=== PATIENT | male | born 2000 | race Caucasian/White ===

== ENCOUNTER 2023-01-28 17:11 | Inpatient (IN) | payer OTHER ==
[2023-01-28 18:22] LABS: HEMATOCRIT 39.8 % (42.0-52.0); MEAN CORPUSCULAR HEMOGLOBIN 32.6 pg (27.0-33.0); MEAN CORPUSCULAR HGB CONC 35.2 g/dl (32.0-36.5); MEAN CORPUSCULAR VOLUME 92.8 fl (80.0-96.0); PLATELET COUNT, AUTOMATED 265 10^3/uL (150-450); RED BLOOD COUNT 4.29 10^6/uL (4.30-6.10); WHITE BLOOD COUNT 11.9 10^3/uL (4.0-10.0)
[2023-01-28 18:39] LABS: AMPHETAMINES LEVEL URINE NEGATIVE (NEGATIVE); BARBITURATES URINE NEGATIVE (NEGATIVE); BENZODIAZEPINES URINE NEGATIVE (NEGATIVE); CANNABINOIDS URINE NEGATIVE (NEGATIVE); COCAINE METABOLITE URINE NEGATIVE (NEGATIVE); METHADONE URINE NEGATIVE (NEGATIVE); OPIATES URINE NEGATIVE (NEGATIVE); PHENCYCLIDINE URINE NEGATIVE (NEGATIVE)
[2023-01-28 18:41] LABS: ETHYL ALCOHOL (ETHANOL) < 0.003 % (0.000-0.010)
[2023-01-28 18:43] LABS: ACETAMINOPHEN LEVEL 2.4 UG/ML (10.0-20.0); ALBUMIN 4.3 G/DL (3.2-5.2); ALKALINE PHOSPHATASE 85 U/L (46-116); ALT/SGPT 25 U/L (7.0-40); AST/SGOT 24 U/L (<34); BILIRUBIN,DIRECT 0.1 MG/DL (<0.4); BILIRUBIN,TOTAL 0.4 MG/DL (0.3-1.2); BLOOD UREA NITROGEN 17 MG/DL (9-23); CALCIUM LEVEL 9.4 MG/DL (8.5-10.1); CARBON DIOXIDE LEVEL 24 MMOL/L (20-31); CHLORIDE LEVEL 107 MMOL/L (98-107); CREATININE FOR GFR 0.91 MG/DL (0.70-1.30); GLOMERULAR FILTRATION RATE > 60.0 (>60); GLUCOSE, FASTING 93 MG/DL (60-100); POTASSIUM SERUM 3.4 MMOL/L (3.5-5.1); SALICYLATE LEVEL < 3.0 MG/DL (<30); SODIUM LEVEL 142 MMOL/L (136-145); TOTAL PROTEIN 7.1 G/DL (5.7-8.2)
[2023-01-28 18:45] LABS: THYROID STIMULATING HORMONE 3.227 uIU/ML (0.55-4.78)
[2023-01-28] MEDS ORDERED: IBUP200C29 PO (19:51)
[2023-01-28] MEDS ORDERED: CLAR10CA3 PO (19:51)
[2023-01-28] MEDS ORDERED: OXYM15SP2 NARES (19:51)
[2023-01-28] MEDS ORDERED: MUCI600T31 PO (19:52)
[2023-01-28] MEDS ORDERED: HOME MED LIST COMPLETE! XX SCH (19:55)
[2023-01-28] MEDS ORDERED: OLANZapine ORAL DISINTEGRATING TAB 5MG PO PRN (22:15)
[2023-01-28] MEDS ORDERED: OXYMETAZOLINE 0.05% NASAL SPRAY (AFRIN) PRN (22:15)
[2023-01-28] MEDS ORDERED: MOM 30ML SUSPENSION UDC PO PRN (22:15)
[2023-01-28] MEDS ORDERED: LORATADINE 10 MG TAB PO PRN (22:15)
[2023-01-28] MEDS ORDERED: ACETAMINOPHEN TAB 650MG DOSE (2X325MG) PO PRN (22:15)
[2023-01-28] MEDS ORDERED: NICOTINE 21MG/24HR 1 EA TRANSDERMAL TD PRN (22:15)
[2023-01-28] MEDS ORDERED: MAALOX 30 ML SUSP *UDC PO PRN (22:15)
[2023-01-28] MEDS ORDERED: guaiFENesin ER 600 MG TAB PO PRN (22:15)
[2023-01-29] MEDS: traZODone 50 MG TAB PO PRN (01:03)
[2023-01-29 01:58] VITALS: BP 130/85; TEMP 98.6; O2SAT 98
[2023-01-29 06:50] VITALS: BP 115/78; TEMP 97.3; O2SAT 100
[2023-01-29] MEDS ORDERED: POTASSIUM CHLORIDE 10MEQ SR TABLET PO ONE (08:05)
[2023-01-29 09:26] LABS: HEMATOCRIT 42.1 % (42.0-52.0); HEMOGLOBIN 14.6 g/dl (13.5-17.5); MEAN CORPUSCULAR HEMOGLOBIN 32.4 pg (27.0-33.0); MEAN CORPUSCULAR HGB CONC 34.7 g/dl (32.0-36.5); MEAN CORPUSCULAR VOLUME 93.3 fl (80.0-96.0); PLATELET COUNT, AUTOMATED 227 10^3/uL (150-450); RED BLOOD COUNT 4.51 10^6/uL (4.30-6.10); WHITE BLOOD COUNT 8.4 10^3/uL (4.0-10.0)
[2023-01-29] MEDS ORDERED: ESCITALOPRAM OXALATE 5MG TABLET (LEXAPRO) PO ONE (11:20)
[2023-01-29] MEDS: NICOTINE POLACRILEX 2 MG GUM PO PRN ×2 (12:50→23:04)
[2023-01-29 16:17] VITALS: BP 123/71; TEMP 98.8; O2SAT 100
[2023-01-30 06:28] VITALS: BP 119/71; TEMP 98.1; O2SAT 98
[2023-01-30] MEDS: ESCITALOPRAM OXALATE 5MG TABLET (LEXAPRO) PO SCH (08:45)
[2023-01-30] MEDS: NICOTINE POLACRILEX 2 MG GUM PO PRN ×2 (08:45→20:45)
[2023-01-30] MEDS: OLANZapine 5 MG TAB PO SCH ×2 (09:47→20:43)
[2023-01-30 15:57] VITALS: BP 128/67; TEMP 97.5; O2SAT 100
[2023-01-30] MEDS: traZODone 50 MG TAB PO PRN (20:43)
[2023-01-31 05:32] VITALS: BP 117/69; TEMP 98; O2SAT 99
[2023-01-31] MEDS: ESCITALOPRAM OXALATE 5MG TABLET (LEXAPRO) PO SCH (09:52)
[2023-01-31] MEDS: OLANZapine 5 MG TAB PO SCH ×2 (09:52→21:43)
[2023-01-31 18:35] VITALS: BP 124/59; TEMP 97.7; O2SAT 96
[2023-01-31] MEDS: traZODone 50 MG TAB PO PRN (21:43)
[2023-01-31] MEDS: NICOTINE POLACRILEX 2 MG GUM PO PRN (21:43)
[2023-02-01 06:12] VITALS: BP 117/66; TEMP 98; O2SAT 99
[2023-02-01] MEDS: ESCITALOPRAM OXALATE 5MG TABLET (LEXAPRO) PO SCH (09:19)
[2023-02-01] MEDS: OLANZapine 5 MG TAB PO SCH ×2 (09:19→21:20)
[2023-02-01] MEDS: NICOTINE POLACRILEX 2 MG GUM PO PRN ×2 (16:40→21:21)
[2023-02-01 16:59] VITALS: BP 136/62; TEMP 98.6; O2SAT 92
[2023-02-01] MEDS: traZODone 50 MG TAB PO PRN (21:20)
[2023-02-02 06:29] VITALS: BP 136/59; TEMP 96.7; O2SAT 98
[2023-02-02] MEDS: ESCITALOPRAM OXALATE 10 MG TAB (LEXAPRO) PO SCH (09:11)
[2023-02-02] MEDS: OLANZapine 5 MG TAB PO SCH ×2 (09:11→21:23)
[2023-02-02] MEDS: NICOTINE POLACRILEX 2 MG GUM PO PRN ×2 (09:12→21:24)
[2023-02-02 16:18] VITALS: BP 115/62; TEMP 98.2; O2SAT 97
[2023-02-02] MEDS: traZODone 50 MG TAB PO PRN (21:23)
[2023-02-03 06:42] VITALS: BP 103/54; TEMP 97.4; O2SAT 98
[2023-02-03] MEDS: OLANZapine 5 MG TAB PO SCH ×2 (08:42→21:21)
[2023-02-03] MEDS: ESCITALOPRAM OXALATE 10 MG TAB (LEXAPRO) PO SCH (08:42)
[2023-02-03] MEDS: NICOTINE POLACRILEX 2 MG GUM PO PRN ×2 (13:57→21:23)
[2023-02-03 16:22] VITALS: BP 130/60; TEMP 98.7; O2SAT 98
[2023-02-03] MEDS: traZODone 50 MG TAB PO PRN (21:21)
[2023-02-03] MEDS: diphenhydrAMINE 25MG CAP PO PRN (22:39)
[2023-02-04 06:31] VITALS: BP 133/72; TEMP 97.9; O2SAT 97
[2023-02-04] MEDS: ESCITALOPRAM OXALATE 10 MG TAB (LEXAPRO) PO SCH (09:26)
[2023-02-04] MEDS: OLANZapine 5 MG TAB PO SCH ×2 (09:26→20:24)
[2023-02-04] MEDS: NICOTINE POLACRILEX 2 MG GUM PO PRN ×2 (09:27→18:50)
[2023-02-04 18:00] VITALS: BP 136/70; TEMP 97; O2SAT 100
[2023-02-04] MEDS: diphenhydrAMINE 25MG CAP PO PRN (18:52)
[2023-02-04] MEDS: traZODone 50 MG TAB PO PRN (20:25)
[2023-02-05 06:25] VITALS: BP 111/60; TEMP 98.7; O2SAT 97
[2023-02-05] MEDS ORDERED: LEXA1TAB PO (07:59)
[2023-02-05] MEDS: OLANZapine 5 MG TAB PO SCH (08:32)
[2023-02-05] MEDS: ESCITALOPRAM OXALATE 10 MG TAB (LEXAPRO) PO SCH (08:32)
== END 2023-02-05 10:12 | disposition home or self-care (01) | DRG 885 ==
LOC: M ED 17:11 → M ED INP 22:13 → M PSY 01-29 00:14
PROVIDERS: ADMIT Student in an Organized Health Care Education/Training Program; ATTEND Student in an Organized Health Care Education/Training Program
DX: F39 Unspecified mood [affective] disorder (principal); R45.851 Suicidal ideations; F20.9 Schizophrenia, unspecified; F43.10 Post-traumatic stress disorder, unspecified; F41.9 Anxiety disorder, unspecified; F70 Mild intellectual disabilities; F17.210 Nicotine dependence, cigarettes, uncomplicated; D72.829 Elevated white blood cell count, unspecified; E87.6 Hypokalemia; Z79.899 Other long term (current) drug therapy

== ENCOUNTER 2023-04-21 13:27 | Emergency (ER) | payer OTHER ==
[~2023-04-21] VITALS: Ht 193 cm; Wt 80.5 kg
[~2023-04-21 13:27] MED LIST: CLAR10CA3 PO; IBUP200C29 PO; LEXA1TAB PO; MUCI600T31 PO; OXYM15SP2 NARES
[2023-04-21 16:09] LABS: HEMATOCRIT 41.9 % (42.0-52.0); HEMOGLOBIN 15.3 g/dl (13.5-17.5); MEAN CORPUSCULAR HEMOGLOBIN 32.1 pg (27.0-33.0); MEAN CORPUSCULAR HGB CONC 36.5 g/dl (32.0-36.5); MEAN CORPUSCULAR VOLUME 87.8 fl (80.0-96.0); PLATELET COUNT, AUTOMATED 341 10^3/uL (150-450); RED BLOOD COUNT 4.77 10^6/uL (4.30-6.10); WHITE BLOOD COUNT 11.1 10^3/uL (4.0-10.0)
[2023-04-21] MEDS ORDERED: hydrOXYzine 50 MG TAB PO STA (16:17)
[2023-04-21 16:21] LABS: BARBITURATES URINE NEGATIVE (NEGATIVE)
[2023-04-21 16:22] LABS: AMPHETAMINES LEVEL URINE NEGATIVE (NEGATIVE); BENZODIAZEPINES URINE NEGATIVE (NEGATIVE); COCAINE METABOLITE URINE NEGATIVE (NEGATIVE); METHADONE URINE NEGATIVE (NEGATIVE); OPIATES URINE NEGATIVE (NEGATIVE); PHENCYCLIDINE URINE NEGATIVE (NEGATIVE)
[2023-04-21 16:23] LABS: ETHYL ALCOHOL (ETHANOL) < 0.003 % (0.000-0.010)
[2023-04-21 16:24] LABS: SALICYLATE LEVEL < 3.0 MG/DL (<30)
[2023-04-21 16:25] LABS: ACETAMINOPHEN LEVEL < 2.0 UG/ML (10.0-20.0); ALBUMIN 4.9 G/DL (3.2-5.2); ALKALINE PHOSPHATASE 68 U/L (46-116); ALT/SGPT 25 U/L (7.0-40); AST/SGOT 31 U/L (<34); BILIRUBIN,DIRECT 0.5 MG/DL (<0.4); BILIRUBIN,TOTAL 1.3 MG/DL (0.3-1.2); BLOOD UREA NITROGEN 16 MG/DL (9-23); CARBON DIOXIDE LEVEL 20 MMOL/L (20-31); CHLORIDE LEVEL 103 MMOL/L (98-107); CPK CREATINE PHOSPHOKINASE 637 U/L (46-171); CREATININE FOR GFR 0.85 MG/DL (0.70-1.30); GLOMERULAR FILTRATION RATE > 60.0 (>60); GLUCOSE, FASTING 83 MG/DL (60-100); POTASSIUM SERUM 3.1 MMOL/L (3.5-5.1); SODIUM LEVEL 139 MMOL/L (136-145); TOTAL PROTEIN 8.4 G/DL (5.7-8.2)
[2023-04-21 16:28] LABS: THYROID STIMULATING HORMONE 1.303 uIU/ML (0.55-4.78)
[2023-04-21 16:34] LABS: CANNABINOIDS URINE POSITIVE (NEGATIVE)
[2023-04-21 17:48] VITALS: BP 134/87; TEMP 98.7; O2SAT 99
[2023-04-21] MEDS ORDERED: HYDR-3363 PO (17:56)
== END 2023-04-21 18:14 | disposition home or self-care (01) ==
LOC: M ED 13:27
DX: F41.9 Anxiety disorder, unspecified (principal); F32.A Depression, unspecified; F51.01 Primary insomnia; F17.200 Nicotine dependence, unspecified, uncomplicated; F12.10 Cannabis abuse, uncomplicated; F10.10 Alcohol abuse, uncomplicated; Z79.899 Other long term (current) drug therapy